=== PATIENT | male | born 1935 | race African-American/Black ===

== ENCOUNTER → 2017-12-08 | Outpatient (CLI) | payer MEDICARE, BC ==
[~2017-12-08] MED LIST: AMLO10TA80 PO; CHOL500010 PO; CYAN10009 PO; ESOM40CA PO; GABA-531 PO; HYDR-519 PO; LORA0.5T2 PO; LOVA40TA73 PO; MULT-1146 PO; TAMS0.4C31 PO
== END | disposition home or self-care (01) ==
LOC: NM 07:52
PROVIDERS: ATTEND Specialist
DX: D57.80 Other sickle-cell disorders without crisis (principal)
CPT/HCPCS: 78306; A9503